=== PATIENT | male | born 1975 | race Caucasian/White ===

== ENCOUNTER 2017-10-26 12:12 | Outpatient (CLI) | payer OTHER, SELFPAY ==
[2017-10-26 13:08] LABS: Hemoglobin 16.5 g/dL (14.0-18.0); Mean Corpuscular Hemoglobin 29.5 pg (27.0-31.0); Mean Corpuscular Volume 89.5 fL (78.0-98.0); Mean Platelet Volume 7.3 fL (7.4-10.4); Platelet Count 239 thou/uL (130-400); Red Blood Cell (RBC) Count 5.59 mill/uL (4.70-6.10); White Blood Cell (WBC) Count 11.6 thou/uL (4.8-10.8)
[2017-10-26 13:10] LABS: PTT 27.3 SEC (22.9-36.1); Platelet Count 239 thou/uL (130-400); Prothrombin Time 13.5 SEC (12.0-14.7)
[2017-10-26 13:49] LABS: Anion Gap 14 mmol/L (10-20); BUN (Urea Nitrogen) 15 mg/dL (8.9-20.6); Calc. Creatinine Clearance 0 mL/min (70-130); Calcium 9.3 mg/dL (7.8-10.44); Carbon Dioxide 26 mmol/L (22-29); Chloride 103 mmol/L (98-107); Estimated GFR-MDRD 51; Glucose 112 mg/dL (70-105); Potassium 3.8 mmol/L (3.5-5.1); Sodium 139 mmol/L (136-145)
== END 2017-10-26 12:13 | disposition home or self-care (01) ==
LOC: LABBT 12:12
PROVIDERS: ATTEND Urology
DX: Z01.812 Encounter for preprocedural laboratory examination (principal); N20.2 Calculus of kidney with calculus of ureter
CPT/HCPCS: 80048; 85027; 85576; 85610; 85730

== ENCOUNTER 2017-10-27 09:04 | Day surgery (SDC) | payer OTHER ==
[2017-10-26 12:24] VITALS: BMI 26.4
--- NOTE | 2017-10-27 10:28 | RAD ---
KUB: Date 10/27/17 HISTORY: Renal calculi, preop. COMPARISON: 12/02/06 study. FINDINGS: Bilateral lower pole renal calculi are seen. There is also a calcification adjacent to the left L4 tr ansverse process, which is potentially a ureteral calculus. Calcifications in the pelvis appear to re present phleboliths. IMPRESSION: Bilateral renal calculi and possible mid left ureteral calculus. POS: GREG
[2017-10-27] MEDS ORDERED: Midazolam HCl 2 mg/2 ml Vial ONE (10:43)
[2017-10-27] MEDS ORDERED: Fentanyl 100 MCG/2 ML VIAL ONE (10:43)
[2017-10-27] MEDS ORDERED: Iothalamate Meglumine 60% 50 ML VIAL FS ONE (10:44)
[2017-10-27] MEDS ORDERED: Ophthalmic Irrigation Solution 15 ML ONE (10:55)
[2017-10-27] MEDS ORDERED: CEFAZOLIN/Water 2 GM/20 ML SYRINGE ONE (13:31)
--- NOTE | 2017-10-27 13:46 | OP ---
DATE OF PROCEDURE: 10/27/2017 PREOPERATIVE DIAGNOSIS: Left ureteral and left renal stones. POSTOPERATIVE DIAGNOSIS: Left ureteral and left renal stones. PROCEDURE PERFORMED: Left ureteral and left renal ESWL, cystoscopy, left stent. SURGEON: Dr. Elia Mares. ANESTHETIC: General. ESTIMATED BLOOD LOSS: Not recorded. FINDINGS: He had a 6-mm mid left ureteral stone treated with 1100 shocks at a kV level 4-5. It did appear to fragment well. He had an 8 x 10-mm cluster of left lower pole stones that were treated wit h 2500 shocks at level 4 and also appeared to fragment well. A 4.8 x 24-cm double-J stent was placed . A string was attached to it. OPERATIVE TECHNIQUE: Obtained written and verbal consent from the patient, and documenting normal pr eoperative blood work, obtaining 2 grams of Ancef, and making sure we could see the stones in his pre operative KUB, he was taken to the operating suite. He was placed in a supine position on the [facility] ent table. PlexiPulses were placed on his lower extremities and turned on. He was given a general a nesthetic and oral intubation. He was coupled to the lithotripsy unit. The stone in the mid ureter was treated first. It was easy to see. It was placed in treatment focal point. Shockwave therapy w as commenced and the kV was slowly brought to level 5. It appeared to begin fragmenting almost immed iately, and by about 1100 shocks, it was just in pieces. At this point, he was repositioned and we t reated the lower pole stones. These were treated with starting at a low kV and then after a couple 1 00 shocks having a 2-minute pause and then the kV was brought to 4. Fluoroscopy was used intermitten tly to document stone fragmentation and to reposition across this stone that crossed a number of ston e fragments in this region. After 2500 shocks, this part of the procedure was terminated. He was pl aced then in a dorsal lithotomy position and sterilely prepped and draped for cystoscopy. Cystoscopy was performed with a 22-Filipino sheath. This was well lubricated and passed under direct vision thro ugh the male urethra and into the urinary bladder with aid of a 22-Filipino sheath and a video camera a nd monitor and a 30-degree lens. The bladder was emptied, it had some blood in it. A guidewire adva nced in the left orifice. There were little stone fragments already down in that region that we angy pulated by. The guidewire easily went up in the area of the renal pelvis. A 5-Filipino Pollack cathet er was placed over it and up into the region of the renal pelvis. The wire was removed. Contrast wa s injected about 12 mL showing a dilated collecting system, although contrast did go down the entire ureter. The guidewire was replaced. The open-ended catheter was removed, and the stent was placed o [place] the guidewire and pushed up into place with aid of a pusher so its proximal end coiled in the bereket al pelvis and its distal end coiled in the bladder when the wire was removed. The bladder straining instruments were removed. A string was left indwelling on the distal end of the stent coming out of the urethral meatus. The patient was taken out of the dorsal lithotomy position, awakened, and extub ated and taken by stretcher to the recovery room.
[2017-10-27] MEDS ORDERED: Lidocaine 1% PF 5 ML VIAL ONE (13:56)
[2017-10-27] MEDS ORDERED: ePHEDrine/0.9% NaCl/PF SYRINGE 50 mg/10 ml ONE (13:56)
[2017-10-27] MEDS ORDERED: Dexamethasone 20 MG/5 ML VIAL ONE (13:56)
[2017-10-27] MEDS ORDERED: PHENYLEPHRINE-NS 100 MCG/ML 10 ML SYRINGE ONE (13:56)
[2017-10-27] MEDS ORDERED: Ondansetron HCl/PF 4 MG/2 ML Vial ONE (13:56)
[2017-10-27] MEDS ORDERED: PROPOFOL 200 MG/20 ML VIAL ONE (13:56)
[2017-10-27] MEDS ORDERED: HYDROcodone/Acetaminophen 5/325 mg Tablet ONE (14:47)
== END 2017-10-27 15:30 | disposition home or self-care (01) ==
LOC: SDC 09:04
PROVIDERS: ATTEND Urology
PROC: 0T778DZ Dilation of Left Ureter with Intraluminal Device, Via Natural or Artificial Opening Endoscopic (ICD-10-PCS; principal; 2017-10-27)
PROC: 0TF4XZZ Fragmentation in Left Kidney Pelvis, External Approach (ICD-10-PCS; principal; 2017-10-27)
PROC: 0TF7XZZ Fragmentation in Left Ureter, External Approach (ICD-10-PCS; principal; 2017-10-27)
DX: N20.2 Calculus of kidney with calculus of ureter (principal)
CPT/HCPCS: 74018; C1758; J1100; J2001; J2250; J2405; J2704; J3010; Q9961